=== PATIENT | female | born 1965 | race Caucasian/White ===

== ENCOUNTER 2018-04-20 13:23 | Emergency (ER) | payer OTHER ==
[~2018-04-20] VITALS: Ht 167.6 cm; Wt 76.7 kg
[~2018-04-20 13:23] MED LIST: KETO10TA2 PO; ORPH100T PO
[2018-04-20] MEDS ORDERED: KETO10TA2 PO (16:40)
[2018-04-20] MEDS ORDERED: FLONASE ALLERG9.9 ML NASAL (16:40)
[2018-04-20] MEDS ORDERED: ZITHROMAX500 MG PO (16:40)
== END 2018-04-20 17:14 | disposition home or self-care (01) ==
LOC: ER 13:23
DX: J11.1 Influenza due to unidentified influenza virus with other respiratory manifestations (principal); J32.4 Chronic pansinusitis

== ENCOUNTER 2022-12-07 07:31 | Emergency (ER) | payer OTHER ==
[~2022-12-07] VITALS: Ht 167.6 cm; Wt 71.2 kg
[~2022-12-07 07:31] MED LIST changes: +FLONASE ALLERG9.9 ML NASAL; +ZITHROMAX500 MG PO
[2022-12-07] MEDS ORDERED: LOSARTAN POTAS100 MG (08:01)
== END 2022-12-07 11:21 | disposition home or self-care (01) ==
LOC: ER 07:31
DX: R51.9 Headache, unspecified (principal); J32.9 Chronic sinusitis, unspecified; I10 Essential (primary) hypertension

== ENCOUNTER 2025-08-03 09:17 | Outpatient (CLI) | payer OTHER ==
[~2025-08-03 09:17] MED LIST changes: +LOSARTAN POTAS100 MG
== END 2025-08-03 09:28 | disposition home or self-care (01) ==
LOC: SONOGRAMA 09:17
PROVIDERS: ATTEND Physical Medicine & Rehabilitation Hospice and Palliative Medicine
DX: R22.9 Localized swelling, mass and lump, unspecified (principal)